=== PATIENT | female | born 1980 | race Caucasian/White ===

== ENCOUNTER → 2017-01-23 | Outpatient (CLI) | payer BC ==
[~2017-01-23] MED LIST: ATV5 PO; CALC-51 PO; CHOL20007 PO; FLUT0.15; LEVO-713 PO; SERT25TA PO; VNTHFA/IN INH
--- NOTE | 2017-01-23 13:36 | DIAGNOSTIC IMAGING REPORT ---
RIGHT KNEE 4 OR MORE CLINICAL HISTORY: RIGHT KNEE PAIN Right pain COMPARISON: None. DISCUSSION: The bones and joint spaces appear intact. There is no evidence of fracture, dislocation or bony disease. There is no evidence for soft tissue swelling. Sclerotic density of the mid femoral shaft. Specific films of the femur are indicated IMPRESSION: 1. Negative right knee 2. Nonspecific calcification mid right femoral shaft with specific images of the femur suggested as initial follow-up. Electronically signed by: Stephan Burris M.D. 01/23/2017 1:34 PM Dictated Date/Time: 01/23/2017 1:33 PM
== END | disposition home or self-care (01) ==
LOC: C.RDSM 13:27
PROVIDERS: ATTEND Physician Assistant
DX: M25.561 Pain in right knee (principal); M25.861 Other specified joint disorders, right knee

== ENCOUNTER → 2017-01-30 | Outpatient (CLI) | payer BC ==
--- NOTE | 2017-01-30 15:27 | DIAGNOSTIC IMAGING REPORT ---
MRI OF THE RIGHT KNEE WITHOUT CONTRAST CLINICAL HISTORY: Right knee pain and swelling following fall. COMPARISON STUDY: Right knee radiograph January 23, 2017. TECHNIQUE: Utilizing a 1.5 Zoraida magnet and dedicated coil, multiplanar, multiecho imaging of the right knee was performed without intravenous or intraarticular contrast. FINDINGS: Alignment of the right knee is anatomic. Extensor mechanism is intact. The posterior cruciate ligament is normal. There is a tear of the proximal anterior cruciate ligament. The medial collateral ligament and lateral collateral ligament complex are intact. A large right knee joint effusion is noted with a fluid fluid level. There is a suspected nondisplaced nondepressed fracture of the posterior aspect of the lateral tibial plateau. There is moderate edema within the lateral tibial plateau as well as a contusion with edema of the lateral femoral condyle and the medial femoral condyle as well as the medial tibial plateau. No additional fractures are identified. The menisci are intact. Other than the impaction injury of the lateral femoral condyle, no additional chondral abnormalities are present. IMPRESSION: 1. Complete tear of the proximal anterior cruciate ligament. 2. Typical bone bruise pattern seen in the setting of an ACL injury. Suspected nondisplaced acute fracture of the posterior aspect of the lateral tibial plateau without depression. 3. Large right knee joint effusion with fluid fluid level which suggests a hemarthrosis. Electronically signed by: Beto Nogueira M.D. 01/30/2017 3:26 PM Dictated Date/Time: 01/30/2017 2:08 PM
== END | disposition home or self-care (01) ==
LOC: C.MRI 12:52
PROVIDERS: ATTEND Physician Assistant
DX: S83.511A Sprain of anterior cruciate ligament of right knee, initial encounter (principal); X58.XXXA Exposure to other specified factors, initial encounter; M25.461 Effusion, right knee

== ENCOUNTER → 2017-02-02 | Outpatient (CLI) | payer BC ==
--- NOTE | 2017-02-02 10:03 | DIAGNOSTIC IMAGING REPORT ---
RIGHT KNEE 4 OR MORE CLINICAL HISTORY: Right knee pain. ACL tear. COMPARISON: 01/23/2017, MRI dated 01/30/2017 DISCUSSION: 4 views are provided for interpretation. No fractures or dislocations are visualized. There are no conventional radiographic abnormalities to correspond to the bone marrow edema described on the recent MRI study. IMPRESSION: No fractures identified on conventional radiographic imaging Electronically signed by: Chidi Sorto M.D. 02/02/2017 10:02 AM Dictated Date/Time: 02/02/2017 9:59 AM
== END | disposition home or self-care (01) ==
LOC: C.RDSM 10:57
PROVIDERS: ATTEND Physician Assistant
DX: S83.519A Sprain of anterior cruciate ligament of unspecified knee, initial encounter (principal); X58.XXXA Exposure to other specified factors, initial encounter

== ENCOUNTER → 2017-02-17 | Day surgery (SDC) | payer BC ==
[2017-02-11 15:41] VITALS: Ht 162.6 cm; Wt 90.9 kg
[~2017-02-17] VITALS: Ht 162.6 cm; Wt 90.9 kg
[~2017-02-17] MED LIST changes: +ATROPINE SULFATE 0.1 MG/ML 5ML SYR IV PRN; +BUPIVACAINE/EPINEPHRINE 0.25% 10 ML VIAL ONE; +CEFAZOLIN 2000 MG/60 ML D5W IV SCH; +DEXAMETHASONE SOD INJ 4 MG/ML VIAL ONE; +EpHEDrine SULFATE INJ 50 MG/ML AMP IV PRN; +EpINEphrine HCL INJ 1 MG/ML 5ML SYRINGE ONE; +FENTANYL CITRATE INJ 50 MCG/1 ML 2 ML VIAL ONE; +HYDROmorphone INJ 0.5 MG/0.5 ML SYR ONE; +HydrALAZINE HCL 20 MG/ML VIAL IV. STA; +KETOROLAC TROMETHAMINE 30 MG/ML VIAL IV. PRN; +LACTATED RINGER'S 1000ML 1,000 ML IV SCH; +LEVOFLOXACIN 500 MG TAB PO SCH; +LIDOCAINE HCL 2% 2 ML VIAL (20MG/ML) ONE; +MEPERIDINE HCL 25 MG/ML CARP ONE; +MIDAZOLAM HCL 1 MG/ML 2ML VIAL ONE; +NURSING VERBAL MED ORDER ONE; +ONDANSETRON INJ 2 MG/ML 2 ML VIAL IV PRN; +ONDANSETRON INJ 2 MG/ML 2 ML VIAL ONE; +OXYCODONE/ACETAMINOPHEN 5-325 TAB PO PRN; +PROPOFOL IV EMULSION 10 MG/ML 20 ML VIAL IV ONE; +SCOPOLAMINE 1.5 MG TDSY TD ONE; +SODIUM CHLORIDE 0.9% 1000ML 1,000 ML IV SCH
--- NOTE | 2017-02-17 06:45 | History & Physical Bridge Note ---
H&P Re-Evaluation Bridge Note: I have examined the patient, reviewed the History & Physical and in the interval since the performance of the History & Physical I have noted the following changes of clinical significance: consent obtained,No changes noted
--- NOTE | 2017-02-17 06:47 | Discharge Instructions ---
Discharge Instructions Date of Service Feb 17, 2017. Admission Reason for Admission: Right Knee Acl Tear Discharge Discharge Diagnosis / Problem: same Discharge Goals Goal(s): Decrease discomfort, Improve function Activity Recommendations Activity Limitations: as noted below Lifting Limitations: until after follow-up appointment Exercise/Sports Limitations: until after follow-up appointment May Resume Sexual Activity: after follow-up appointment Shower/Bathe: keep incision dry Driving or Machine Use: Weightbearing Status: Right weightbearing (as tolerated) The following instructions are a useful guide to questions you may have after your Anterior Cruciate Ligament Reconstruction surgery. If you have any questions contact the office at . ACTIVITY RECOMMENDATIONS: * Heavy manual labor is not permitted until 4-6 months after surgery. * Sports are not permitted until 6-9 months after surgery. * Return to activity is individualized. * DRIVING: Driving is not permitted until 3-4 weeks after surgery at a minimum. Please ask your doctor when it is safe to resume driving. If you have an automatic vehicle and your left leg has been operated on, then you may begin driving as soon as you are comfortable and can drive safely. * BATHING: You may shower or sponge-bathe immediately after surgery. The dressing will need to be covered with a plastic bag or plastic wrap until the dressing is changed on the fourth or fifth day after surgery. Once the dressing has been changed on the fourth or fifth day after surgery, you may shower and get the incision wet. * Wash with regular soap and water. * Do not bathe (submerge the incision), soak, swim or use a hot tub until the incision is completely healed over with normal skin and the doctor has given the OK to proceed. * There is no need to apply any ointments, powders or salves to your incision. * Do not apply alcohol or hydrogen peroxide directly to the incision. Diluted peroxide (50:50 mixture with sterile saline) may be used to clean dried blood from around the incision area. WORK/SCHOOL: * You may return to sedentary work or school when you are feeling comfortable. This is usually 3-7 days after surgery. * Expect increased discomfort with increased activity. Continue to elevate and ice the leg as much as possible. DIET: * Resume previous diet. MEDICATIONS: * You will have a prescription for pain medication and an anti-inflammatory medication after surgery. Use the pain pills for severe pain and the anti-inflammatory for less severe pain. * Once the pain pills have run out, try to use the anti-inflammatory. If this is not effective then contact the office for assistance. * The pain medication may cause nausea, constipation and sleepiness. You should see how they affect you before driving or similar activity. * The anti-inflammatory may cause stomach upset and bleeding. If this occurs, let your doctor know immediately . * Some patients may need blood clot prevention. This can be done with either a pill or a simple shot. Your doctor will advise you on when to begin these medications and how to take them. * Do not take aspirin or other anti-inflammatory products (i.e. Advil or Aleve ) if taking blood thinner medication. * Take a stool softener like Colace or a stimulant like Senokot to prevent constipation. SPECIAL CARE INSTRUCTIONS: The following instructions are a useful guide to questions you may have after your surgery. If you have any questions contact the office at . ICE: * You have the option of an ice cooler, gel packs or ice bags. * If you have an ice cooler, refer to the instructions for that device. * If you do not have an ice cooler, then you will need to use ice bags or gel packs. * Do not apply ice directly to the skin. * Use a thin dressing or stockinet between the skin and ice bag. * Apply ice for 20-30 minutes and repeat every 2-4 hours. This is especially important for the first 7-10 days after surgery. * Once the pain improves, use ice as needed. * The ice cooler can be used continuously. ELEVATION: * Keep your leg elevated at or above the level of your heart as much as possible. * Expect some increased discomfort and swelling if you are standing for any length of time. * When lying down, avoid placing anything under your knee. Rather, prop your leg up by placing several pillows under your heel or calf. DRESSING: * Your dressing will be changed at your first therapy appointment approximately 4-5 days after surgery. * Band-Aids, tape strips or gauze may be applied. You may then change your dressing daily. * Always wash your hands prior to touching the incision area. * Reapply dressing followed by the Mik wrap or Tubi-buffing wheel inspector stockinet, ice cooling pad and then the brace. * Once the stitches are removed, you may leave the wound open to air or cover with an Mik Bandage or Tubi-buffing wheel inspector stockinet. * If you have been given a white elastic stocking (SHAWN hose), wear as much as possible for the first 1-3 weeks depending on swelling. * Expect some bloody drainage for the first few days after surgery. * Leave the tape strips in place for 5-7 days. * Band-Aids and gauze may be changed daily. CRUTCHES: * You will need to use crutches after surgery. * Until your first doctor's appointment, you must use your crutches at all times when walking and should put no more than 50% of your normal weight on the surgical leg. * After your first doctor's appointment, you may gradually progress to full weight bearing and discontinue crutches as tolerated under the guidance of your therapist. * If you have had a microfracture procedure done, you may be advised to be non- weight bearing for up to 6 weeks. BRACE: * After surgery, you will be placed into a range of motion brace locked with your leg straight. This brace is to be worn at all times when walking (even with the crutches) and sleeping until your first doctors appointment. * The brace may be removed for therapy. * After your first therapy appointment, your therapist will open the brace to allow bending of the knee once your muscles are working better. * Until your first doctor's appointment, you should sleep with your brace locked with your knee fully straight. * If you have chosen to use a functional ACL brace then this brace will be supplied about 2-3 months after your surgery. During that time, you will attend therapy 2- 3 times per week. You will also need to do daily exercises for range of motion and strength as instructed. PROBLEMS/QUESTIONS: * If you have any problems such as severe pain, numbness, tingling or high fevers or if you have any questions, please contact the office at [phone]. * It is not uncommon to have some numbness and tingling after the surgery especially if you have had a nerve block done. This should gradually improve over the first 1- 2 days. If this persists longer or worsens then contact the office. FOLLOW UP VISIT: * If not already scheduled, please call the office at to schedule follow-up appointments for approximately 10 days and one month after surgery followed by monthly appointments thereafter. . Instructions / Follow-Up Instructions / Follow-Up The following instructions are a useful guide to questions you may have after your Anterior Cruciate Ligament Reconstruction surgery. If you have any questions contact the office at . ACTIVITY RECOMMENDATIONS: * Heavy manual labor is not permitted until 4-6 months after surgery. * Sports are not permitted until 6-9 months after surgery. * Return to activity is individualized. * DRIVING: Driving is not permitted until 3-4 weeks after surgery at a minimum. Please ask your doctor when it is safe to resume driving. If you have an automatic vehicle and your left leg has been operated on, then you may begin driving as soon as you are comfortable and can drive safely. * BATHING: You may shower or sponge-bathe immediately after surgery. The dressing will need to be covered with a plastic bag or plastic wrap until the dressing is changed on the fourth or fifth day after surgery. Once the dressing has been changed on the fourth or fifth day after surgery, you may shower and get the incision wet. * Wash with regular soap and water. * Do not bathe (submerge the incision), soak, swim or use a hot tub until the incision is completely healed over with normal skin and the doctor has given the OK to proceed. * There is no need to apply any ointments, powders or salves to your incision. * Do not apply alcohol or hydrogen peroxide directly to the incision. Diluted peroxide (50:50 mixture with sterile saline) may be used to clean dried blood from around the incision area. WORK/SCHOOL: * You may return to sedentary work or school when you are feeling comfortable. This is usually 3-7 days after surgery. * Expect increased discomfort with increased activity. Continue to elevate and ice the leg as much as possible. DIET: * Resume previous diet. MEDICATIONS: * You will have a prescription for pain medication and an anti-inflammatory medication after surgery. Use the pain pills for severe pain and the anti-inflammatory for less severe pain. * Once the pain pills have run out, try to use the anti-inflammatory. If this is not effective then contact the office for assistance. * The pain medication may cause nausea, constipation and sleepiness. You should see how they affect you before driving or similar activity. * The anti-inflammatory may cause stomach upset and bleeding. If this occurs, let your doctor know immediately . * Some patients may need blood clot prevention. This can be done with either a pill or a simple shot. Your doctor will advise you on when to begin these medications and how to take them. * Do not take aspirin or other anti-inflammatory products (i.e. Advil or Aleve ) if taking blood thinner medication. * Take a stool softener like Colace or a stimulant like Senokot to prevent constipation. SPECIAL CARE INSTRUCTIONS: The following instructions are a useful guide to questions you may have after your surgery. If you have any questions contact the office at . ICE: * You have the option of an ice cooler, gel packs or ice bags. * If you have an ice cooler, refer to the instructions for that device. * If you do not have an ice cooler, then you will need to use ice bags or gel packs. * Do not apply ice directly to the skin. * Use a thin dressing or stockinet between the skin and ice bag. * Apply ice for 20-30 minutes and repeat every 2-4 hours. This is especially important for the first 7-10 days after surgery. * Once the pain improves, use ice as needed. * The ice cooler can be used continuously. ELEVATION: * Keep your leg elevated at or above the level of your heart as much as possible. * Expect some increased discomfort and swelling if you are standing for any length of time. * When lying down, avoid placing anything under your knee. Rather, prop your leg up by placing several pillows under your heel or calf. DRESSING: * Your dressing will be changed at your first therapy appointment approximately 4-5 days after surgery. * Band-Aids, tape strips or gauze may be applied. You may then change your dressing daily. * Always wash your hands prior to touching the incision area. * Reapply dressing followed by the Mik wrap or Tubi-buffing wheel inspector stockinet, ice cooling pad and then the brace. * Once the stitches are removed, you may leave the wound open to air or cover with an Mik Bandage or Tubi-buffing wheel inspector stockinet. * If you have been given a white elastic stocking (SHAWN hose), wear as much as possible for the first 1-3 weeks depending on swelling. * Expect some bloody drainage for the first few days after surgery. * Leave the tape strips in place for 5-7 days. * Band-Aids and gauze may be changed daily. CRUTCHES: * You will need to use crutches after surgery. * Until your first doctor's appointment, you must use your crutches at all times when walking and should put no more than 50% of your normal weight on the surgical leg. * After your first doctor's appointment, you may gradually progress to full weight bearing and discontinue crutches as tolerated under the guidance of your therapist. * If you have had a microfracture procedure done, you may be advised to be non- weight bearing for up to 6 weeks. BRACE: * After surgery, you will be placed into a range of motion brace locked with your leg straight. This brace is to be worn at all times when walking (even with the crutches) and sleeping until your first doctors appointment. * The brace may be removed for therapy. * After your first therapy appointment, your therapist will open the brace to allow bending of the knee once your muscles are working better. * Until your first doctor's appointment, you should sleep with your brace locked with your knee fully straight. * If you have chosen to use a functional ACL brace then this brace will be supplied about 2-3 months after your surgery. During that time, you will attend therapy 2- 3 times per week. You will also need to do daily exercises for range of motion and strength as instructed. PROBLEMS/QUESTIONS: * If you have any problems such as severe pain, numbness, tingling or high fevers or if you have any questions, please contact the office at [phone]. * It is not uncommon to have some numbness and tingling after the surgery especially if you have had a nerve block done. This should gradually improve over the first 1- 2 days. If this persists longer or worsens then contact the office. FOLLOW UP VISIT: * If not already scheduled, please call the office at to schedule follow-up appointments for approximately 10 days and one month after surgery followed by monthly appointments thereafter. Current Hospital Diet Patient's current hospital diet: Discharge Diet Recommended Diet: Regular Diet Procedures Procedures Performed: endoscopic acl reconstruction Pending Studies Studies pending at discharge: no Medical Emergencies . Who to Call and When: Medical Emergencies: If at any time you feel your situation is an emergency, please call 911 immediately. . Non-Emergent Contact Non-Emergency issues call your: Specialist Call Non-Emergent contact if: you have a fever, temperature is above 101.5 . "Provider Documentation" section prepared by Vincent Eastman. . VTE Core Measure Inpt VTE Proph given/why not?: Enoxaparin (Lovenox)SQ
--- NOTE | 2017-02-17 09:24 | [facility] Post Operative Brief Note ---
Immediate Operative Summary Operative Date Feb 17, 2017. Pre-Operative Diagnosis Right Knee ACL Tear Post-Operative Diagnosis Same Procedure(s) Performed Right Knee Arthroscopic Anterior Cruciate Ligament Reconstruction Using Patellar tendon autograft Tendon Autograft, Examination Under Anesthesia Surgeon Dr. Eastman Cylinder Inspector Surgeon(s) Saúl Rivas PA-C Estimated Blood Loss 25 mL Findings see op note Fluids (cc crystalloids) 1000cc Specimens None Drains none Anesthesia LMA/block Complication(s) None Disposition Recovery Room / PACU
[2017-02-17] MEDS: FENTANYL CITRATE INJ 50 MCG/1 ML 2 ML VIAL IV PRN ×4 (09:35→10:16)
--- NOTE | 2017-02-17 09:45 | OPERATIVE REPORT ---
DATE OF OPERATION: 02/17/2017 SURGEON: Dr. Eastman. WATER TAXI CAPTAIN: Mark Rivas PA-C. No resident or fellow available. PREOPERATIVE DIAGNOSIS: Anterior cruciate ligament tear, right knee. POSTOPERATIVE DIAGNOSIS: Same. OPERATION PERFORMED: 1. Exam under anesthesia. 2. Diagnostic arthroscopy. 3. Endoscopic ACL reconstruction using central 1/3 patellar tendon autograft. PERIOPERATIVE SITUATION: Medically cleared female with an injury to her knee, has a positive Greg and pivot shift, positive MRI scan. At this point in time, wants to proceed with surgical reconstruction. She is cleared medically. PROCEDURE: The patient appropriately identified, site verified, consent verified, 2 grams of Ancef confirmed as being given. The right lower extremity was examined revealing positive Greg and pivot shift. She was then sterilely prepped and draped in usual routine fashion. Tourniquet inflated to 300 mmHg after exsanguination of limb with a rubber Esmarch bandage for a total of 63 minutes. Inferomedial and inferolateral portals were made and the knee scoped. There was no major meniscal pathology. There was a small surface cuff to the posterior horn of the lateral meniscus which was stable and healed. Stump of the ACL was noted to be high femoral detachment. The lateral wall was empty, it was debrided. The medial compartment was healthy. Patellofemoral compartment was healthy. The lateral compartment was healthy articular peñaloza. An anterior incision was then made. Subperiosteal dissection off the anteromedial tibia, preserving the pes and the MCL. A tibial drill hole then made very medial and proximal obliquity to get the transtibial guide posteriorly. The stump of the ACL was left attached on the femur. A transtibial guide was able to be placed in excellent position. Guidewire passed and a 30 mm socket made. All bone debris removed. Central 1/3 patellar tendon was then harvested using power saw with bone blocks being 30 x 10 x 5 off the tibia and 20 x 10 x 5 off the patella. It was then appropriately trimmed to fit through the 11 mm tibial hole and 10 mm femoral hole. TightRope placed on the femur, 2 sutures on the tibia, bone blocks. They were #2 Ethibonds. The graft was then passed and secured well with the TightRope with excellent purchase according to the suspension device and then a trough made and the graft secured on the tibia with two 8 mm elver with excellent purchase. Greg was then tested, it was completely normal. Pivot shift normal. The graft was inspected through a full range of motion, there were no issues, it was nice and horizontal. The wounds were then irrigated. The peritenon closed with 2-0 Vicryl after bone trimming was used to graft the harvest site. 0 Vicryl used to cover the fascial layer of the pes and the MCL over the tibial tunnel. The wound irrigated one final time and closed with 2-0 plain and running subcuticular 2-0 Prolene for the incision and 4-0 nylon for the 2 portals. Appropriate soft tissue dressing applied and the patient transferred to recovery room in satisfactory condition, having tolerated the procedure well. Estimated blood loss 25 mL. Crystalloid 2000 mL. Brace applied. The patient will be weightbearing to tolerance. Start range of motion tomorrow. Start DVT prophylaxis tomorrow. I attest to the content of the Intraoperative Record and any orders documented therein. Any exceptions are noted below. MTDD
[2017-02-17] MEDS: MEPERIDINE HCL 25 MG/ML CARP IV PRN ×2 (10:26→10:39)
--- NOTE | 2017-02-17 11:31 | [facility] Operative Report ---
Operative Report Operative Date Feb 17, 2017. Pre-Operative Diagnosis Right Knee ACL Tear Post-Operative Diagnosis Right knee Same Procedure(s) Performed Right Knee Arthroscopic Anterior Cruciate Ligament Reconstruction Using Patellar tendon autograft Tendon Autograft, Examination Under Anesthesia Surgeon Dr. Eastman Maple Products Maker Surgeon(s) Saúl Rivas PA-C Estimated Blood Loss 25 mL Findings Torn anterior cruciate ligament Fluids (cc crystalloids) 1000cc Specimens None Drains none Complication(s) None Disposition Recovery Room / PACU Indications This 36-year-old white female presents to the office with complaints of right knee instability after injuring herself while pulling weeds. She twisted and fell and felt her knee shift and buckle. X-ray and MRI were obtained. She elected to proceed with surgical intervention after being educated about potential risks and outcomes. Description of Procedure Patient was administered a regional block and then taken to the operating room where she was given general anesthesia. She was prepped and draped in usual sterile fashion. Please see Dr. Eastman's operative report for specifics of the procedure. I was present for the entire case from initial patient positioning through final wound closure. Assistance was provided in tissue traction, hemostasis, arthroscopy, graft harvest graft placement, hardware placement, and final wound closure. Patient was taken to the recovery room in satisfactory condition. I attest to the content of the Intraoperative Record and any orders documented therein. Any exceptions are noted below.
--- NOTE | 2017-02-17 11:48 | Anesthesia Progress Nt - [facility] ---
Anesthesia Post Op Note Date & Time Feb 17, 2017 at 11:47 Vital Signs Pain Intensity: 4 Vital Signs Past 12 Hours Date Time Temp Pulse Resp B/P (MAP) Pulse Ox O2 Delivery O2 Flow Rate FiO2 02/17/17 11:10 65 16 151/93 (112) 97 Room Air 02/17/17 10:55 37.2 71 18 168/98 95 Room Air 02/17/17 10:54 69 18 02/17/17 10:54 72 18 95 02/17/17 10:51 158/96 02/17/17 10:49 66 22 93 02/17/17 10:49 68 22 02/17/17 10:46 157/98 02/17/17 10:44 66 18 02/17/17 10:44 67 18 95 02/17/17 10:41 154/102 02/17/17 10:39 78 12 96 02/17/17 10:39 72 12 02/17/17 10:36 169/112 02/17/17 10:34 70 19 98 02/17/17 10:34 74 19 02/17/17 10:31 158/100 02/17/17 10:29 67 19 98 02/17/17 10:29 69 19 02/17/17 10:26 152/115 02/17/17 10:24 69 14 02/17/17 10:24 65 14 99 02/17/17 10:21 156/117 02/17/17 10:19 61 13 02/17/17 10:19 61 13 99 02/17/17 10:16 160/113 02/17/17 10:14 59 13 02/17/17 10:14 60 13 99 02/17/17 10:11 161/106 02/17/17 10:09 62 17 02/17/17 10:09 62 17 99 02/17/17 10:06 161/117 02/17/17 10:04 59 17 02/17/17 10:04 60 17 98 02/17/17 10:01 159/110 02/17/17 09:59 61 19 02/17/17 09:59 60 19 99 02/17/17 09:56 178/113 02/17/17 09:54 55 17 99 02/17/17 09:54 57 17 02/17/17 09:52 172/125 02/17/17 09:49 57 16 95 02/17/17 09:49 57 16 02/17/17 09:46 182/121 02/17/17 09:44 68 16 02/17/17 09:44 67 16 96 02/17/17 09:41 183/117 02/17/17 09:39 63 17 98 02/17/17 09:39 62 17 02/17/17 09:36 172/121 02/17/17 09:34 68 17 96 02/17/17 09:34 67 17 02/17/17 09:31 163/109 02/17/17 09:29 72 26 02/17/17 09:29 74 26 98 02/17/17 09:27 167/128 02/17/17 09:24 83 18 175/113 97 02/17/17 09:24 81 18 02/17/17 09:23 191/115 02/17/17 09:23 187/125 02/17/17 09:21 37.7 86 20 175/113 96 Mask 6 02/17/17 07:39 80 02/17/17 07:39 80 18 100 02/17/17 07:38 69 02/17/17 07:38 68 7 98 02/17/17 07:36 124/68 02/17/17 07:33 60 02/17/17 07:33 58 19 98 02/17/17 07:31 119/81 02/17/17 07:28 63 8 98 02/17/17 07:28 66 02/17/17 07:27 66 15 98 02/17/17 07:27 63 02/17/17 07:26 128/70 02/17/17 07:22 74 02/17/17 07:22 75 27 99 02/17/17 07:21 123/85 02/17/17 07:17 81 02/17/17 07:17 80 6 98 02/17/17 07:16 135/92 02/17/17 07:12 76 0 02/17/17 07:11 137/94 02/17/17 07:09 146/88 02/17/17 07:07 74 0 02/17/17 07:02 69 0 02/17/17 06:57 66 0 02/17/17 06:52 0 02/17/17 06:47 0 02/17/17 06:30 36.5 65 18 128/91 (103) 96 Room Air Notes Mental Status: alert / awake / arousable, participated in evaluation Pt Amnestic to Procedure: Yes Nausea / Vomiting: adequately controlled Pain: adequately controlled Airway Patency, RR, SpO2: stable & adequate BP & HR: stable & adequate Hydration State: stable & adequate Anesthetic Complications: no major complications apparent
[2017-02-17 11:53] VITALS: BP 164/93; PULSE 53; TEMP 37; O2SAT 96
== END | disposition home or self-care (01) ==
LOC: X.SURG 06:07
PROVIDERS: ATTEND Physical Medicine & Rehabilitation Sports Medicine
DX: S83.511A Sprain of anterior cruciate ligament of right knee, initial encounter (principal); W01.0XXA Fall on same level from slipping, tripping and stumbling without subsequent striking against object, initial encounter; Y93.H2 Activity, gardening and landscaping; J45.909 Unspecified asthma, uncomplicated; F41.9 Anxiety disorder, unspecified; Z79.899 Other long term (current) drug therapy

== ENCOUNTER → 2017-03-30 | Outpatient (CLI) | payer BC ==
[~2017-03-30] MED LIST changes: -ATROPINE SULFATE 0.1 MG/ML 5ML SYR IV PRN; -BUPIVACAINE/EPINEPHRINE 0.25% 10 ML VIAL ONE; -CEFAZOLIN 2000 MG/60 ML D5W IV SCH; -DEXAMETHASONE SOD INJ 4 MG/ML VIAL ONE; -EpHEDrine SULFATE INJ 50 MG/ML AMP IV PRN; -EpINEphrine HCL INJ 1 MG/ML 5ML SYRINGE ONE; -FENTANYL CITRATE INJ 50 MCG/1 ML 2 ML VIAL ONE; -HYDROmorphone INJ 0.5 MG/0.5 ML SYR ONE; -HydrALAZINE HCL 20 MG/ML VIAL IV. STA; -KETOROLAC TROMETHAMINE 30 MG/ML VIAL IV. PRN; -LACTATED RINGER'S 1000ML 1,000 ML IV SCH; -LEVO-713 PO; -LEVOFLOXACIN 500 MG TAB PO SCH; -LIDOCAINE HCL 2% 2 ML VIAL (20MG/ML) ONE; -MEPERIDINE HCL 25 MG/ML CARP ONE; -MIDAZOLAM HCL 1 MG/ML 2ML VIAL ONE; -NURSING VERBAL MED ORDER ONE; -ONDANSETRON INJ 2 MG/ML 2 ML VIAL IV PRN; -ONDANSETRON INJ 2 MG/ML 2 ML VIAL ONE; -OXYCODONE/ACETAMINOPHEN 5-325 TAB PO PRN; -PROPOFOL IV EMULSION 10 MG/ML 20 ML VIAL IV ONE; -SCOPOLAMINE 1.5 MG TDSY TD ONE; -SODIUM CHLORIDE 0.9% 1000ML 1,000 ML IV SCH
== END | disposition home or self-care (01) ==
LOC: C.RDSM 15:15
PROVIDERS: ATTEND Physical Medicine & Rehabilitation Sports Medicine
DX: M25.561 Pain in right knee (principal)